=== PATIENT | male | born 1995 | race Caucasian/White ===

== ENCOUNTER 2022-05-22 21:17 | Emergency (ER) | payer BC, SELFPAY ==
[2022-05-22 21:17] VITALS: BP 111/77; PULSE 128; RESP 15; TEMP 37.2; O2SAT 100; BMI 31.8
[2022-05-22] MEDS: DiphenhydrAMINE 25 MG Capsule PO (22:05)
[2022-05-22] MEDS: predniSONE 20 MG Tablet 60 MG PO (22:05)
[2022-05-22] MEDS: Famotidine 20 MG Tablet PO (22:05)
--- NOTE | 2022-05-22 22:22 | EX.ED.DYSGE1 ---
HPI History of Present Illness Chief Complaint: Allergic Reaction Narrative Narrative: 27-year-old male presenting with rash on his extremities. He states is a little bit on his abdomen. He states this started acutely this evening. Patient does state that he was outdoors this afternoon working with wood. He states that he came inside and started to feel itchy after taking a shower. He states that his itchiness has spread all over his arms and legs. He denies difficulty swallowing or breathing. He denies cough or shortness of breath. He denies abdominal pain. Patient denies fever or chills. He denies any exposures new soaps, dyes, linens, detergents etc. PFSH PFSH Medical History no medical history Home Medications diphenhydramine HCl 25 mg capsule (Benadryl) 25 mg PO TID PRN allergic reaction #20 caps 05/22/22 [Rx Last Taken Unknown] epinephrine 0.3 mg/0.3 mL injection, auto-injector (EpiPen 2-Alec) 0.3 mg (0.3 mL) IM Q4H PRN anaphylaxis #2 ea 05/22/22 [Rx Last Taken Unknown] famotidine 20 mg tablet (Pepcid) 20 mg PO BID PRN allergic symptoms #20 tabs 05/22/22 [Rx Last Taken Unknown] prednisone 10 mg tablet See Taper PO DAILY #30 tabs 05/22/22 [Rx Last Taken Unknown] Allergy/AdvReac Type Severity Reaction Status Date / Time No Known Allergies Allergy Verified 05/22/22 21:20 Surgical History (Updated 05/22/22 @ 21:37 by Johanna Rodriguez) H/O foot surgery Social History Smoking Status: Never smoker ROS [facility] ED Constitutional Constitutional ED: Denies chills or fever(s) Eyes Eyes: Denies change in vision or diplopia ENT ENT ED: Denies rhinorrhea or sore throat Cardiovascular Cardiovascular: Denies chest pain or palpitations Respiratory/Chest Respiratory/Chest: Denies cough or dyspnea Gastrointestinal Gastrointestinal: Denies abdominal pain or constipation Genitourinary Genitourinary ED: Denies dysuria or hematuria Musculoskeletal Musculoskeletal: Denies arthralgias or back pain Integumentary Reports rash Neurologic Neurologic: Denies headache(s) or paresthesias EXAM Physical Exam Const Vital Signs: 05/22/22 21:17 Temperature 99.0 F Temperature Source Temporal Pulse Rate 128 H Respiratory Rate 15 Blood Pressure 111/77 Blood Pressure Mean 88 Pulse Ox 100 Oxygen Delivery Method Room Air Positive well nourished General Appearance ED: NAD HEENT Reports moist mucous membranes HEENT Narrative: Oropharynx patent without stridor. No sublingual edema. Tongue not swollen. Eyes PERRL and EOMs intact bilaterally General Eye ED: Negative for pale conjunctiva or scleral icterus Resp normal respiratory effort and clear to auscultation bilaterally Cardio regular rhythm Rate: tachycardic GI normal to inspection, nondistended, normoactive bowel sounds Neuro oriented x3 and CN's II-XII intact bilaterally Sensorium / Orientation: alert Motor Exam: strength 5/5 throughout Psych mental status grossly normal Skin Skin Narrative: Erythematous maculopapular rash on bilateral arms and legs. There is a small amount on the abdomen. Nontender to palpation. No crepitance noted. No vesicles. No skin sloughing. MDM MDM MDM Narrative Medical decision making narrative: 27-year-old male presenting with rash which is allergic in nature. I do not believe he needs epinephrine currently. He was given Pepcid, Benadryl, prednisone in the ED. I will put him on an extended taper of prednisone. He was given prescriptions for Benadryl and Pepcid as well. He was also given a prescription for an EpiPen and if he has to use this he is instructed to come back to the ED. Impression: 1. Allergic dermatitis Lab Data Attestation: I reviewed the patient's lab results. Discharge Plan Triage Chief Complaint: Allergic Reaction ED Provider: Thomas Ybarra Dx/Rx/DC Orders Instructions: ED General Allergic Reactions, ED Drug Reaction, Other Prescriptions: New prednisone 10 mg tablet See Taper PO DAILY Qty: 30 0RF Taper: Prednisone Taper 40 mg DAILY@0800 for 3 Days and 0 Hour 30 mg DAILY@0800 for 3 Days and 0 Hour 20 mg DAILY@0800 for 3 Days and 0 Hour 10 mg DAILY@0800 for 3 Days and 0 Hour epinephrine [EpiPen 2-Alec] 0.3 mg/0.3 mL auto-injector 0.3 mg IM Q4H PRN (Reason: anaphylaxis) Qty: 2 0RF diphenhydramine HCl [Benadryl] 25 mg capsule 25 mg PO TID PRN (Reason: allergic reaction) Qty: 20 0RF famotidine [Pepcid] 20 mg tablet 20 mg PO BID PRN (Reason: allergic symptoms) Qty: 20 0RF Primary Care Provider: Ashly Mckeon Referrals: Ashly Mckeon MD [Primary Care Provider] - Disposition Disposition: Home, Self Care Discharge Date/Time: 05/22/22 22:39
== END 2022-05-22 22:39 | disposition home or self-care (01) ==
PROVIDERS: Emergency Provider Student in an Organized Health Care Education/Training Program; PCP Family Medicine; Visit Provider Student in an Organized Health Care Education/Training Program
DX: T78.40XA Allergy, unspecified, initial encounter (principal)
CPT/HCPCS: 99283